=== PATIENT | male | born 1965 | race Caucasian/White ===

== ENCOUNTER 2022-10-01 13:24 | Emergency (ER) | payer OTHER ==
[~2022-10-01] VITALS: Ht 182.9 cm; Wt 95.3 kg
[2022-10-01] MEDS ORDERED: IV NORMAL SALINE 500 ML BAG IV ONE (13:45)
[2022-10-01] MEDS ORDERED: levETIRAcetam IV 1,000 MG in IV DEXTROSE 5% 100 ML IV ONE (13:45)
--- NOTE | 2022-10-01 13:46 | NUR ---
PT IS IN ROOM #1A. DR LAZCANO EVALUATED THE PT.
[2022-10-01 13:53] LABS: HEMATOCRIT 43.1 % (36.7-47.1); MEAN CORPUSCULAR HEMOGLOBIN 31.4 uug (23.8-33.4); MEAN CORPUSCULAR VOLUME 94.5 fL (73.0-96.2); PLATELET COUNT (AUTO) 297 K/uL (152-348)
[2022-10-01] MEDS ORDERED: levETIRAcetam 500 MG/5 ML VIAL IV ONE (13:59)
[2022-10-01 14:10] LABS: ETHANOL < 3 MG/DL (0-0)
[2022-10-01 14:11] LABS: ALANINE AMINOTRANSFERASE 26 U/L (16-63); ALKALINE PHOSPHATASE 72 U/L (50-136); ASPARTATE AMINOTRANSFERASE 15 U/L (15-37); BILIRUBIN,DIRECT 0.1 mg/dL (0.0-0.2); BILIRUBIN,TOTAL 0.6 mg/dL (0.2-1.0); CARBON DIOXIDE 18 mmol/L (21-32); CHLORIDE 102 mmol/L (98-107); CREATININE 1.4 mg/dL (0.6-1.3); GLUCOSE 150 mg/dL (74-106); POTASSIUM 3.9 mmol/L (3.5-5.1); TOTAL PROTEIN, SERUM 7.5 g/dL (6.4-8.2); UREA NITROGEN, BLOOD 20 mg/dL (7-18)
[2022-10-01] MEDS ORDERED: ACETAMINOPHEN 325 MG TABLET PO ONE (15:00)
[2022-10-01] MEDS ORDERED: ACETAMINOPHEN 325 MG TABLET ONE (15:07)
[2022-10-01 15:08] LABS: *BILIRUBIN,URIN NEGATIVE (NEGATIVE); *CLARITY,URINE CLEAR (CLEAR); *COLOR,URINE YELLOW (YELLOW); *KETONES,URINE NEGATIVE (NEGATIVE); *UROBILINOGEN,URINE 0.2 E.U./dl (NORMAL); LEUKOCYTE ESTERASE ,URINE NEGATIVE (NEGATIVE); NITRITE, URINE NEGATIVE (NEGATIVE); PH,URINE 5.5 (5.0-8.0); UGLUCOSE NEGATIVE (NEGATIVE)
[2022-10-01 15:11] LABS: *BLOOD, URINE NEGATIVE (NEGATIVE)
[2022-10-01] MEDS ORDERED: IV NORMAL SALINE 1000 ML BAG IV ONE (15:15)
[2022-10-01 15:16] LABS: *AMPHETAMINE, URINE NEGATIVE (NEGATIVE); *CANNABINOID, URINE NEGATIVE (NEGATIVE); *COCCAINE, URINE NEGATIVE (NEGATIVE); *OPIATE, URINE NEGATIVE (NEGATIVE); *PHENCYCLIDINE SCREEN,URINE NEGATIVE (NEGATIVE)
[2022-10-01 15:44] LABS: HEMATOCRIT 41.6 % (36.7-47.1); MEAN CORPUSCULAR HEMOGLOBIN 30.9 uug (23.8-33.4); MEAN CORPUSCULAR VOLUME 93.5 fL (73.0-96.2); PLATELET COUNT (AUTO) 274 K/uL (152-348)
[2022-10-01 15:59] LABS: CREATININE 1.2 mg/dL (0.6-1.3); POTASSIUM 3.8 mmol/L (3.5-5.1)
[2022-10-01] MEDS ORDERED: MORPHINE SULFATE 4 MG/1 ML DISP.SYRIN ONE (16:12)
[2022-10-01] MEDS ORDERED: LIDOCAINE HCL 1% 20 ML VIAL ONE (16:13)
[2022-10-01] MEDS ORDERED: MEROPENEM 2 G in IV NORMAL SALINE 100 ML IV ONE (16:15)
[2022-10-01] MEDS ORDERED: LIDOCAINE HCL 1% 20 ML VIAL IJ ONE (16:15)
[2022-10-01] MEDS ORDERED: ACYCLOVIR IV 500 MG in IV DEXTROSE 5% 100 ML IV ONE (16:15)
[2022-10-01] MEDS ORDERED: MORPHINE SULFATE 4 MG/1 ML DISP.SYRIN IV ONE (16:15)
[2022-10-01] MEDS ORDERED: VANCOMYCIN IV 1,000 MG in IV DEXTROSE 5% 250 ML IV ONE (16:15)
[2022-10-01] MEDS ORDERED: ACYCLOVIR 500 MG VIAL IV ONE (17:06)
[2022-10-01] MEDS ORDERED: VANCOMYCIN IV 200 ML ONE (17:06)
[2022-10-01] MEDS ORDERED: MEROPENEM 1GM/NS 100ML IVPB **ER PYXIS ONLY IV ONE (17:07)
[2022-10-01] MEDS ORDERED: MEROPENEM 1 G VIAL IV ONE (17:07)
--- NOTE | 2022-10-01 18:31 | NUR ---
PT IS GOING TO BE TRNSFERED TO [facility]. NURSING JOURNEYMAN ELECTRICIAN TARAS SPOKE TO [facility] NURSING JOURNEYMAN ELECTRICIAN ABOUT PT TRANSFER. BED IS GOING TO BE AVAILABLE AFTER CHANGE OF THE SHIFTS. PR INTERN RN NEED TO CALL [facility] TO GIVE REPORT AND FIND OUT ROOM NUMBER FOR PT's TRNSFER.
--- NOTE | 2022-10-01 19:02 | NUR ---
REPORT GIVEN TO CARDROOM DRAWING RUNNER RN.
--- NOTE | 2022-10-01 19:31 | NUR ---
PATIENT SITTING UP IN BED, EATING MEAL TRAY. NO S/S OF ANY DISTRESS NOTED AT THIS TIME, O2 IN USE, DENIES ANY PAIN OR DISCOMFORT AT THIS TIME. UPDATED ON PLAN OF CARE, AWARE WILL BE TRANSFERED, WILL CONTINUE TO MONITOR.
--- NOTE | 2022-10-01 20:08 | NUR ---
PATIENT COMPLETED MEAL TRAY, CONTINUES TO REST WITHOUT ANY C/O.
[2022-10-01 20:54] LABS: CSF GLUCOSE 62 mg/dL (40-70); CSF PROTEIN 70 mg/dL (15-45)
--- NOTE | 2022-10-01 21:06 | NUR ---
Called [facility] ambulance to transport patient to [facility] room 101. ETA 40mins
--- NOTE | 2022-10-01 21:19 | NUR ---
REPORT GIVEN TO ACCEPTING NURSE MAY, PATIENT REMAINS STABLE FOR TRANSPORT AT THIS TIME.
--- NOTE | 2022-10-01 21:37 | NUR ---
PATIENT INFORMED REPORT WAS CALLED TO [facility] AND ETA FOR JIG BUILDER HELPER IS 30 MINUTES. PATIENT STATES WILL PUT GOWN ON AT THAT TIME.
[2022-10-04 14:06] LABS: CRYPTOCOCCUS AB, SERUM Negative (Negative)
== END 2022-10-01 23:31 | disposition short-term general hospital (02) ==
LOC: ER 13:24
DX: R56.9 Unspecified convulsions (principal); D72.829 Elevated white blood cell count, unspecified; Z86.61 Personal history of infections of the central nervous system; Z86.19 Personal history of other infectious and parasitic diseases; Z20.822 Contact with and (suspected) exposure to COVID-19; E66.9 Obesity, unspecified; Z68.28 Body mass index [BMI] 28.0-28.9, adult; N28.9 Disorder of kidney and ureter, unspecified; Z82.49 Family history of ischemic heart disease and other diseases of the circulatory system; Z83.79 Family history of other diseases of the digestive system
CPT/HCPCS: 36415; 70450; 71045; 83605; 84157; 84484; 85025; 85730; 86592; 87040; 87328; 87806; 89051; 93005; A4663; G0480; J0133; J1953; J2185; J2270; J3370; J3490; J7040